=== PATIENT | female | born 1965 | race Caucasian/White ===

== ENCOUNTER 2021-05-06 07:00 | Outpatient (CLI) | payer MEDICARE ==
--- NOTE | 2021-05-06 10:25 | CT Report ---
PROCEDURE: LUMBAR SPINE WO INDICATIONS: BACK PAIN TECHNIQUE: Noncontrast 3 mm thick sections acquired from the T12 level to the sacrum. Sagittal and coronal refo rmats were constructed. For radiation dose reduction, the following was used: automated exposure co ntrol, adjustment of mA and/or kV according to patient size. COMPARISON: None. FINDINGS: Image quality: Excellent. Bones: Transitional anatomy is present. For the purposes of this report, the lowest disc space level is designated L5-S1, with sacralization of the L5 vertebra. The last rib-bearing vertebral body is d esignated T11. Postsurgical changes are seen extending from the lower thoracic spine through the sacrum. A right int erbody rods are seen extending from T10 through S1 with with right-sided pedicle screws at all levels except L2. A left interbody rods extends beyond the superior extent of the exam, with pedicle screws visualized from T10 through S1 except T12. Interbody spacer is present at the L2-3 level. The left-s ided pedicle screw at the L2 level is located lateral to the pedicle with tip just lateral to the L2 vertebral body. Mild lucency surrounding the pedicle screws within S1, which may indicate loosening. There is levoconvex curvature of the thoracolumbar spine with apex at the L2 vertebral body level. Th ere is grade 1 retrolisthesis of L3 on L4, L1 on L2, and T12 on L1. No suspicious lytic or blastic [place] lesions. No pars defects. T12-L1: There is mild disc space narrowing and grade 1 retrolisthesis of T12 on L1 as well as mild l eft facet hypertrophy. There are right facet joint is not well visualized. There is no significant sp inal canal stenosis or neuroforaminal narrowing. L1-L2: Postsurgical changes are seen from laminectomy. There is grade 1 retrolisthesis of L1 on L2 and mild loss of disc space height. There is mild right neural foraminal narrowing without significa nt left neural foraminal narrowing or spinal canal stenosis. L2-L3: Postsurgical changes are seen with disc spacer and partial osseous fusion across the disc s pace. There is osseous fusion of the facet joints and posterior elements. There is no significant spi nal canal stenosis or neuroforaminal narrowing. L3-L4: There is grade 1 retrolisthesis of L3 on L4. Mild circumferential disc bulging is seen and t here is osseous fusion of the posterior elements and facet joints. Findings do not result in signific ant spinal canal stenosis or neural foraminal narrowing. L4-L5: There is mild loss of disc space height with circumferential disc bulging and disc osteophyt e complexes as well as moderate bilateral facet hypertrophy. Findings result in moderate left and mil d right neural foraminal narrowing without significant spinal canal stenosis. L5-S1: The L5 transverse processes articulate with the sacrum. There is moderate bilateral facet hy pertrophy. Mild bilateral neural foraminal narrowing is seen without spinal canal stenosis. Soft tissues: Normal stimulator devices are seen with pulse generators in the right posterior subcuta neous tissues at the L2 and L3 levels. Leads are located dorsal to the spinous processes. Surgical cl ips are seen anterior to the sacrum. No retroperitoneal masses or hematomas. Visualized aorta is nor mal in caliber. There is fatty infiltration of the paraspinous musculature. IMPRESSION: 1. Transitional anatomy is present. For the purposes of this report, the lowest disc space level is designated L5-S1, with sacralization of the L5 vertebra. The last rib-bearing vertebral body is desig nated T11. 2. Extensive posterior fixation hardware is seen as described above extending from at least the T10- S1 levels. Mild lucencies are seen surrounding the S1 pedicle screws, which may indicate mild looseni ng. 3. Levoconvex curvature of the lumbar spine with apex at the L2 level. Mild grade 1 retrolistheses a re seen including T12 on L1, L1-L2 and L2, and L3 on L4. 4. Multilevel degenerative disc disease and facet hypertrophy as described in detail in the body rep ort. No high-grade spinal canal stenosis or neural foraminal narrowing. Reviewed by: Freddie Vitale MD on 05/06/2021 10:24 AM PDT Approved by: Freddie Vitale MD on 05/06/2021 10:24 AM PDT Station ID: [id number]
--- NOTE | 2021-05-06 12:14 | MRI Report ---
PROCEDURE: Cervical Spine W/O INDICATIONS: BACK PAIN TECHNIQUE: Noncontrast sagittal T1 spin echo and T2 fast spin echo, sagittal STIR, foraminal oblique sagittal T2 fast spin echo, and axial T2 fast spin echo and gradient echo through the cervical spine. COMPARISON: None. FINDINGS: Image quality: Excellent. Alignment and Curvature: There is normal bony alignment. Bone Marrow: Marrow demonstrates normal overall signal. Spinal Cord: Visualized spinal cord has normal size and signal. No cerebellar tonsillar herniation. Paraspinous Soft Tissues: No paravertebral masses. Prevertebral soft tissues are normal in thicknes s. C2-C3: No significant spinal canal stenosis or neural foraminal narrowing. C3-C4: There is disc desiccation and mild loss of disc space height as well as mild bilateral uncov ertebral joint and facet hypertrophy. Findings result in mild to moderate right and mild left neural foraminal narrowing without significant spinal canal stenosis. C4-C5: There is mild disc desiccation and loss of disc space height with degenerative endplate siddiqi es and circumferential disc bulging as well as uncovertebral joint and facet hypertrophy. Findings re sult in moderate right and [id number] left neural foraminal narrowing. C5-C6: There is disc desiccation and severe loss of disc space height with degenerative endplate shyam nges and circumferential disc bulging as well as uncovertebral joint and facet hypertrophy. Findings result in mild narrowing of the spinal canal and moderate to severe right and moderate left neural fo raminal narrowing. C6-C7: There is disc desiccation and mild loss of disc space height with mild circumferential disc b ulging as well as mild uncovertebral joint and facet hypertrophy. Findings result in mild right and m oderate left neural foraminal narrowing without significant spinal canal stenosis. C7-T1: No significant spinal canal stenosis or neural foraminal narrowing. IMPRESSION: 1. Multilevel degenerative disc disease and uncovertebral joint and facet hypertrophy as described i n detail in the body of the report. 2. Moderate to severe right-sided neural foraminal narrowing is seen at the C5-6 level. Additional m ultilevel mild and moderate neuroforaminal narrowing is seen as described above. 3. No high-grade spinal canal stenosis. Reviewed by: Freddie Vitale MD on 05/06/2021 12:13 PM PDT Approved by: Freddie Vitale MD on 05/06/2021 12:13 PM PDT Station ID: [id number]
--- NOTE | 2021-05-06 12:23 | MRI Report ---
PROCEDURE: Thoracic Spine W/O INDICATIONS: BACK PAIN TECHNIQUE: Noncontrast sagittal T1 spine echo and T2 fast spin echo, sagittal STIR, axial T1 and T2 fast spin ec ho through the thoracic spine. COMPARISON: None. FINDINGS: Image quality: Excellent. Alignment and Curvature: There is levoconvex curvature of the included upper lumbar spine. The mid up per thoracic spine is normal in alignment. Bone Marrow: Post surgical changes are seen in the lower thoracic spine extending superiorly to the T10 level on the left and the T11 level on the right. Mild degenerative endplate edema is seen surrou nding the T8-9 disc space level anteriorly as well as at the anterior-inferior endplate of T4. Modic type II changes are seen surrounding the T12-L1 disc space. Marrow is otherwise normal in signal inte nsity. No acute vertebral body compression fractures. Spinal Cord: Visualized spinal cord is normal in size and signal. Paraspinous Soft Tissues: No paravertebral masses. A T2 hyperintense cyst is seen in the superior p ole of the right kidney. A small hiatal hernia is present. Miscellaneous: On axial images, central canal and foramina appear widely patent at all scanned level s. IMPRESSION: 1. Postsurgical changes in the lower thoracic spine. No significant spinal canal stenosis or neural foraminal narrowing is seen at any level in the thoracic spine. 2. Mild degenerative endplate edema at the T4-5 and T8-9 levels, which can be associated with pain. Reviewed by: Freddie Vitale MD on 05/06/2021 12:22 PM PDT Approved by: Freddie Vitale MD on 05/06/2021 12:22 PM PDT Station ID: [id number]
--- NOTE | 2021-05-06 12:28 | MRI Report ---
PROCEDURE: Lumbar Spine W/O INDICATIONS: BACK PAIN TECHNIQUE: Noncontrast sagittal T1 spin echo and T2 fast echo, sagittal STIR, axial T1 and T2 fast spin echo thr ough the lumbar spine. Axial and oblique coronal T1 spin echo and STIR through the sacrum. In cases with scoliosis, additional coronal T2 fast spin echo may be performed. COMPARISON: Radiographs dated 05/06/2021 FINDINGS: Alignment and Curvature: Postsurgical changes related to posterior spinal fixation from the level of the visualized thoracic spine through the sacrum. Trace retrolisthesis of L1-L2. Levoscoliosis of th e lumbar spine Bone Marrow: Multilevel endplate degenerative sclerosis and spurring. Diffuse facet arthropathy. No evidence of acute fracture. Spinal Cord: Conus medullaris terminates at the L1 level. Visualized cord demonstrates normal signa l and size. Paraspinous Soft Tissues: No paravertebral masses. T12-L1: Normal in appearance. L1-L2: No definite canal stenosis. No left foraminal stenosis. Right neuroforamen is obscured by h ardware artifact. L2-L3: No definite canal stenosis. Moderate right foraminal narrowing. No definite left foraminal stenosis. L3-L4: Minimal canal narrowing. No left foraminal stenosis. Mild to moderate right foraminal narrow ing although this area partially obscured by hardware artifact. L4-L5: No canal stenosis. Mild left foraminal narrowing. Moderate right foraminal stenosis. L5-S1: No canal stenosis. Mild bilateral foraminal narrowing Sacrum: Visualized sacral plexus appears normal. IMPRESSION: Extensive postsurgical changes as above. No definite high-grade canal stenosis. Diffuse bilateral foraminal stenoses as detailed above although suboptimal evaluation secondary to soria rdware artifact. Reviewed by: Juan R Hutchins MD on 05/06/2021 12:26 PM PDT Approved by: Juan R Hutchins MD on 05/06/2021 12:26 PM PDT Station ID: [id number]
== END 2021-05-06 07:01 | disposition home or self-care (01) ==
LOC: DI 07:00
PROVIDERS: ATTEND Orthopaedic Surgery Orthopaedic Surgery of the Spine
DX: M54.5 Low back pain (principal); M54.16 Radiculopathy, lumbar region; M43.10 Spondylolisthesis, site unspecified; M43.14 Spondylolisthesis, thoracic region; M43.16 Spondylolisthesis, lumbar region; M47.815 Spondylosis without myelopathy or radiculopathy, thoracolumbar region; M51.36 Other intervertebral disc degeneration, lumbar region; M48.061 Spinal stenosis, lumbar region without neurogenic claudication; M47.817 Spondylosis without myelopathy or radiculopathy, lumbosacral region; M48.07 Spinal stenosis, lumbosacral region; M47.812 Spondylosis without myelopathy or radiculopathy, cervical region; M50.31 Other cervical disc degeneration, high cervical region; M48.02 Spinal stenosis, cervical region; Z98.1 Arthrodesis status

== ENCOUNTER 2021-05-06 10:55 | Outpatient (CLI) | payer MEDICARE ==
--- NOTE | 2021-05-06 13:58 | XRAY Report ---
PROCEDURE: Spine Scoliosis Study 2-3V INDICATIONS: SCOLIOSIS STUDY TECHNIQUE: Frontal and lateral standing views of the spine acquired. COMPARISON: CT lumbar spine and MRI of the spine performed on the same day. FINDINGS: Post surgical changes are seen from posterior fixation extending from T10 through S2 on the left and T11-S2 on the right. Lucency is seen surrounding the S2 pedicle screws, which may indicate loosening. No hardware fracture is seen. A disc spacer is seen at the L3-4 level. Neural stimulator devices are seen in the posterior subcutaneous tissues with leads in the midline. Additional postsurgical change s are seen with metallic emma and clips in the right upper quadrant and projecting over the sacrum . There is a dominant levoconvex curvature of the lower thoracic and lumbar spine. The Barcenas angle measu res 28 degrees. Trace secondary dextroconvex curvature is seen in the lower to mid thoracic spine. The Barcenas angle noe sures approximately 12 degrees. The lumbar spine is obscured on lateral view by overlying soft tissue and osseous structures related to arm positioning. No vertebral body compression fracture is seen. No vertebral anomaly identified. 12 thoracic rib pairs are seen. IMPRESSION: 1. Postsurgical changes with posterior fusion hardware extending from T10 through S2. 2. Levoconvex curvature of the lumbar spine with Barcenas angle measuring up to 28 degrees. 3. Dextroconvex curvature of the mid to lower thoracic spine measuring up to 12 degrees. Reviewed by: Freddie Vitale MD on 05/06/2021 1:57 PM PDT Approved by: Freddie Vitale MD on 05/06/2021 1:57 PM PDT Station ID: [id number]
== END 2021-05-06 10:56 | disposition home or self-care (01) ==
LOC: DI.N 10:55
PROVIDERS: ATTEND Orthopaedic Surgery Orthopaedic Surgery of the Spine
DX: Z98.1 Arthrodesis status (principal)